=== PATIENT | female | born 1950 | race Caucasian/White ===

== ENCOUNTER 2020-09-02 15:54 | Emergency (ER) | payer MEDICARE, OTHER ==
[~2020-09-02] VITALS: Ht 154.9 cm; Wt 59.0 kg
[2020-09-02 16:15] VITALS: BP 125/69
[2020-09-02] MEDS ORDERED: Omnipaque-300 100ml vial INJ PRN (16:15)
[2020-09-02] MEDS ORDERED: Morphine Sulfate 2mg/ml Inj(IV/IM USE ONLY) IVP ONE (16:15)
[2020-09-02] MEDS ORDERED: Ketorolac 30mg Inj IV ONE ×2 (16:15→18:30)
--- NOTE | 2020-09-02 16:54 | NUR ---
ED Nurse Note: Patient from home and walked in due to abd pain with diarrhea x 3 days. Patient presented crying, AAO x4, VSS at this time. IV line was established on left AC 20ga, blood collecrted sent to lab
[2020-09-02 17:10] LABS: HEMATOCRIT 35.3 % (37.0-47.0); MEAN CORPUSCULAR VOLUME 72 FL (80-99); PLATELET COUNT 77 K/UL (150-450); RED BLOOD COUNT 4.91 M/UL (4.20-5.40); RED CELL DISTRIBUTION WIDTH 15.4 % (11.6-14.8); WHITE BLOOD COUNT 7.5 K/UL (4.8-10.8)
[2020-09-02 17:12] LABS: BASOPHILS % (AUTO) 0.5 % (0.0-2.0); EOSINOPHILS % (AUTO) 0.2 % (0.0-3.0); LYMPHOCYTES % (AUTO) 5.2 % (20.0-45.0); MONOCYTES % (AUTO) 5.5 % (1.0-10.0); NEUTROPHILS % (AUTO) 88.6 % (45.0-75.0)
[2020-09-02 17:34] LABS: INR 1.2 (0.9-1.1)
--- NOTE | 2020-09-02 17:34 | Emergency Room Report ---
History of Present Illness General Chief Complaint: Abdominal Pain Present Illness HPI 70-year-old female with history of type 2 diabetes reports has not taken Metformin for a few months, and chronic pain taking tramadol and gabapentin here complaining of 2 days of severe 10 out of 10 diffuse cramping abdominal pain with multiple bouts of diarrhea. Patient reports that stools are black or beard. Denies any blood in stool however reports that she had minimal amount of bright red stool earlier today which may be related to her hemorrhoids. Denies vomiting however complains of nausea. Denies fever and chills, cough or congestion. Denies urinary symptoms. Denies feeling weak. Denies any history of GI bleed. Reports that earlier today she took Pepto-Bismol for symptom relief. Has not taken any medication for symptom relief. 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 COVID-19 Screening: Negative COVID-19 COVID-19 Testing Source: a few months ago Patient History Past Medical History: see triage record Past Surgical History: none Pertinent Family History: none Now: No Immunizations: UTD Reviewed Nursing Documentation: PMH: Agreed; PSxH: Agreed Nursing Documentation-PMH Hx Hypertension: Yes Hx Diabetes: Yes Hx Cancer: Yes - nose Review of Systems All Other Systems: negative except mentioned in HPI Physical Exam Vital Signs Date Time Temp Pulse Resp B/P (MAP) Pulse Ox O2 Delivery O2 Flow Rate FiO2 09/02/20 16:00 100.0 117 20 125/69 (87) 95 Room Air Sp02 EP Interpretation: reviewed, normal General Appearance: no apparent distress, alert, GCS 15, non-toxic Head: normocephalic, atraumatic Eyes: bilateral eye normal inspection, bilateral eye PERRL ENT: hearing grossly normal, normal pharynx, no angioedema, normal voice Neck: full range of motion, supple/symm/no masses Respiratory: chest non-tender, lungs clear, normal breath sounds, speaking full sentences Cardiovascular #1: regular rate, rhythm, no edema, no murmur Cardiovascular #2: 2+ carotid (R), 2+ carotid (L), 2+ radial (R), 2+ radial (L), 2+ dorsalis pedis (R), 2+ dorsalis pedis (L) Gastrointestinal: normal bowel sounds, non tender, soft, no mass, no organomegaly, no peritonitis, no bruit, non-distended, no guarding, no rebound Rectal: deferred Musculoskeletal: back normal, digits/nails normal, no calf tenderness Neurologic: alert, motor strength/tone normal, oriented x3, sensory intact, responsive, speech normal Psychiatric: judgement/insight normal, memory normal, mood/affect normal, no suicidal/homicidal ideation Skin: no rash Lymphatic: no adenopathy Medical Decision Making PA Attestation All diagnoses and treatment plans were reviewed and discussed with my supervising physician Dr. Martinez Diagnostic Impression: Primary Impression: Liver cirrhosis Additional Impressions: Esophageal varices UTI (urinary tract infection) ER Course 70-year-old female with history of type 2 diabetes reports has not taken Metformin for a few months, and chronic pain taking tramadol and gabapentin here complaining of 2 days of severe 10 out of 10 diffuse cramping abdominal pain with multiple bouts of diarrhea. Patient reports that stools are black or beard. Denies any blood in stool however reports that she had minimal amount of bright red stool earlier today which may be related to her hemorrhoids. Denies vomiting however complains of nausea. Denies fever and chills, cough or congestion. Denies urinary symptoms. Denies feeling weak. Denies any history of GI bleed. Reports that earlier today she took Pepto-Bismol for symptom relief. Has not taken any medication for symptom relief. Ddx considered but are not limited to: appendicitis, cholecystis, gastritis, gastroenteritis, UTI, pyelonephritis, SBO, diverticulitis, influenza with GI manifestation, AR, GI bleed Vital signs: are WNL, pt. is afebrile H&PE are most consistent with: cirrhosis, esophageal varices< UTI ORDERS: abdominal CT, abdominal pain set, EKG, FOBT, tylenol, zofran, pepcid,ke flex ED INTERVENTIONS: NS bolus, morphine, Zofran, Toradol DISCHARGE: At this time pt. is stable for d/c to home. Will provide printed patient care instructions, and any necessary prescriptions. Care plan and follow up instructions have been discussed with the patient prior to discharge. Follow-up with your primary care provider and etl lead, for subsequent return to the emergency room EKG Diagnostic Results Rate: tachycardiac Rhythm: other - tachy ST Segments: no acute changes Other Impression No acute ST changes ASA given to the pt in ED: No CT/MRI/US Diagnostic Results CT/MRI/US Diagnostic Results : Imaging Test Ordered: CT abdomen pelvis with contrast Impression IMPRESSION: 1. Cirrhosis, massive splenomegaly, large paraesophageal varices, splenorenal shunt. 2. Pancolonicwall thickening could represent colopathy. 3. Mild urinarybladder wall thickening could be incidental or could represent cystitis. 4. Cholecystectomywith biliaryductal prominence likelywithin normal limits following cholecystectomy; correlate with presentation. Last Vital Signs Date Time Temp Pulse Resp B/P (MAP) Pulse Ox O2 Delivery O2 Flow Rate FiO2 09/02/20 16:58 100.0 09/02/20 16:15 20 125/69 95 Room Air 09/02/20 16:15 117 Disposition: HOME, SELF-CARE Condition: Stable Referrals: [facility] (PCP) Patient Instructions: Cirrhosis Additional Instructions: Follow-up with your primary care provider and etl lead if worsening symptoms return to the emergency room. Nicole Roberto Sep 02, 2020 17:34
[2020-09-02 17:35] LABS: ANION GAP 8 mmol/L (5-15); BLOOD UREA NITROGEN 11 mg/dL (7-18); CALCIUM 9.6 MG/DL (8.5-10.1); CARBON DIOXIDE 28 MMOL/L (21-32); CHLORIDE 103 MMOL/L (98-107); CREATININE 0.9 MG/DL (0.55-1.30); SODIUM 139 MMOL/L (136-145)
[2020-09-02 17:45] LABS: ALANINE AMINOTRANSFERASE 39 U/L (12-78); ALBUMIN 4.1 G/DL (3.4-5.0); ALBUMIN/GLOBULIN RATIO 1.2 (1.0-2.7); ALKALINE PHOSPHATASE 158 U/L (46-116); ASPARTATE AMINO TRANSFERASE 45 U/L (15-37); BILIRUBIN,TOTAL 1.3 MG/DL (0.2-1.0)
[2020-09-02 17:46] LABS: BILIRUBIN,DIRECT 0.6 MG/DL (0.0-0.3)
--- NOTE | 2020-09-02 18:09 | Diagnostic Imaging Report ---
EXAM: CT Abdomen and Pelvis With Intravenous Contrast CLINICAL HISTORY: ABD PAIN TECHNIQUE: Axial computed tomography images of the abdomen and pelvis with intravenous contrast. CTDI is 5.2 mGy and DLP is 266.0 mGy-cm. One or more of the following dose reduction techniques were used: automated exposure control, adjustment of the mA and/or kV according to patient size, use of iterative reconstruction technique. Coronal and sagittal reformatted images were created and reviewed. COMPARISON: No relevant prior studies available. FINDINGS: Lung bases: Unremarkable. No mass. No consolidation. ABDOMEN: Liver: Cirrhosis. Gallbladder and bile ducts: Cholecystectomy with biliary ductal prominence likely within normal limits following cholecystectomy; correlate with presentation. Pancreas: Unremarkable. No mass. No ductal dilation. Spleen: Massive splenomegaly 20 cm cc dimension. Adrenals: Unremarkable. No mass. Kidneys and ureters: Benign right renal subcentimeter angiomyolipoma or comparison additional follow-up. Benign left renal 4.5 cm cyst requires no additional follow-up. Otherwise unremarkable kidneys. No hydronephrosis. Stomach and bowel: Pancolonic wall thickening could represent colopathy. No obstruction. PELVIS: Appendix: No findings to suggest acute appendicitis. Bladder: Mild urinary bladder wall thickening could be incidental or could represent cystitis. Reproductive: Unremarkable as visualized. ABDOMEN and PELVIS: Intraperitoneal space: Unremarkable. No free air. No significant fluid collection. Bones/joints: Severe osteopenia. No acute fracture. No dislocation. Soft tissues: Unremarkable. Vasculature: Large splenorenal shunt. 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 Paraesophageal massive varices. Upper abdominal varices. Lymph nodes: Unremarkable. No enlarged lymph nodes. IMPRESSION: 1. Cirrhosis, massive splenomegaly, large paraesophageal varices, splenorenal shunt. 2. Pancolonic wall thickening could represent colopathy. 3. Mild urinary bladder wall thickening could be incidental or could represent cystitis. 4. Cholecystectomy with biliary ductal prominence likely within normal limits following cholecystectomy; correlate with presentation.
[2020-09-02] MEDS ORDERED: ZOFRAN4 M1 ORAL (18:29)
[2020-09-02] MEDS ORDERED: TYLENOL EXTRA500 MG ORAL (18:29)
[2020-09-02] MEDS ORDERED: CEPHALEXIN500 MG ORAL (18:29)
[2020-09-02] MEDS ORDERED: FAMOTIDINE20 MG ORAL (18:29)
[2020-09-02 18:48] VITALS: BP 125/69
--- NOTE | 2020-09-02 18:49 | NUR ---
ER DISCHARGE NOTE: Patient is cleared to be discharged per ERMD, pt is aox4, on room air, with stable vital signs. pt was given dc and prescription instructions, pt was able to verbalize understanding, pt id band and iv site removed without complications. pt is able to ambulate with steady gait. pt took all belongings.
== END 2020-09-02 18:49 | disposition home or self-care (01) ==
LOC: EMR 16:27
DX: K74.60 Unspecified cirrhosis of liver (principal); I85.00 Esophageal varices without bleeding; N39.0 Urinary tract infection, site not specified; E11.9 Type 2 diabetes mellitus without complications; I10 Essential (primary) hypertension; Z85.89 Personal history of malignant neoplasm of other organs and systems; G89.29 Other chronic pain; Z91.14 Patient's other noncompliance with medication regimen; Z90.49 Acquired absence of other specified parts of digestive tract
CPT/HCPCS: 36415; 74177; 80053; 82248; 82270; 83605; 83690; 84484; 85025; 85610; 85730; 86850; 86900; 86901; 93005; 96361; 96374; 96375; 96376; 99284; J1885; J2270; J2405; J7030; Q9965